=== PATIENT | male | born 1935 | race Caucasian/White ===

== ENCOUNTER 2021-03-14 20:39 | Emergency (ER) | payer OTHER ==
[~2021-03-14] VITALS: Ht 177.8 cm; Wt 90.7 kg
[2021-03-14 22:01] VITALS: BP 149/78
[2021-03-14 23:41] LABS: Urine Bacteria NONE SEEN /hpf (None Seen); Urine Blood 3+ /uL (Negative); Urine Specific Gravity 1.015 (1.001-1.035); Urine WBC 920 /hpf (0 - 3); Urine WBC Clumps PRESENT /hpf (None Seen)
== END 2021-03-15 00:45 | disposition home or self-care (01) ==
LOC: ER 20:42
DX: N39.0 Urinary tract infection, site not specified (principal)
CPT/HCPCS: 51702; 81001